=== PATIENT | male | born 1950 | race Caucasian/White ===

== ENCOUNTER 2017-06-16 09:00 | Day surgery (SDC) | payer MEDICARE, OTHER ==
[~2017-06-16 09:00] MED LIST: HYDROmorphone 2 MG/ML VIAL IV; IV RINGERS,LACTATED 1000ML 1,000 ML IV; LIDOCAINE 1% PF 2 ML VIAL. ID; MORPHINE SULFATE 2 MG/ML DISP.SYRIN. IV; ONDANSETRON PF 4 MG/2 ML VIAL. IV; PROCHLORPERAZINE 10 MG/2 ML VIAL. IV; fentaNYL PF VIAL 100 MCG/2 ML VIAL IV
[2017-06-16] MEDS ORDERED: PROPOFOL 20 ML IV ×2 (10:24)
== END 2017-06-16 11:40 | disposition home or self-care (01) ==
LOC: SURG 09:00
DX: I48.92 Unspecified atrial flutter (principal); E78.00 Pure hypercholesterolemia, unspecified; I48.91 Unspecified atrial fibrillation; K21.9 Gastro-esophageal reflux disease without esophagitis; F17.200 Nicotine dependence, unspecified, uncomplicated; Z98.41 Cataract extraction status, right eye; Z98.42 Cataract extraction status, left eye; Z87.39 Personal history of other diseases of the musculoskeletal system and connective tissue; Z72.89 Other problems related to lifestyle; Z88.0 Allergy status to penicillin
CPT/HCPCS: 92960; 93005; J2704

== ENCOUNTER → 2020-01-22 | Outpatient (CLI) | payer MEDICARE, OTHER ==
[2017-06-16 11:09] VITALS: BP 113/75
[~2020-01-22] MED LIST changes: +AMIO200T4 PO; +APIX5TAB PO; +DILT240C66 PO; -HYDROmorphone 2 MG/ML VIAL IV; -IV RINGERS,LACTATED 1000ML 1,000 ML IV; -LIDOCAINE 1% PF 2 ML VIAL. ID; -MORPHINE SULFATE 2 MG/ML DISP.SYRIN. IV; +MULT-445 PO; -ONDANSETRON PF 4 MG/2 ML VIAL. IV; +PANT20TA2 PO; -PROCHLORPERAZINE 10 MG/2 ML VIAL. IV; -fentaNYL PF VIAL 100 MCG/2 ML VIAL IV
--- NOTE | 2020-01-22 11:58 | CARD ---
MR#: [id number] Date of Study: 01/22/2020 Ordering Physician: ROSALINDA EVANS, Referring Physician: ROSALINDA EVANS Tech: Gali Resendiz RDCS APPROVED REPORT EXAM: Two-dimensional and M-mode echocardiogram with Doppler and color Doppler. Other Information Quality : Fair Technically limited study due to body habitus. INDICATION Atrial Flutter 2D DIMENSIONS Left Atrium(2D)3.9 (1.6-4.0cm)IVSd1.1 (0.7-1.1cm) Aortic Root(2D)2.8 (2.0-3.7cm)LVDd4.9 (3.9-5.9cm) LVOT Diameter2.0 (1.8-2.4cm)PWd1.1 (0.7-1.1cm) LVDs3.0 (2.5-4.0cm)FS (%) 38.2 % SV76.7 mlLVEF(%)60.0 (>50%) Aortic Valve AoV Peak Kavon.139.9cm/sAoV VTI33.0cm AO Peak GR.7.8mmHgLVOT Peak Kavon.132.5cm/s LVOT VTI 30.07cmAO Mean GR.4mmHg EASTON (VMAX)3.05px1ZGU (VTI)2.95cm2 Mitral Valve MV E Wujvbojy975.3cm/sMV DECEL EACD487cw MV A Ybmthjod62.8cm/sMV TSL84vc E/A Ratio1.5MVA (PHT)3.56cm2 TDI E/Lateral E'13.3E/Medial E'17.9 Tricuspid Valve TR P. Xmafqxpl007hs/sRAP [id number] TR Peak Gr.91chSoAMNE14wrXe Pulmonary Vein S1 Sopzpnqu07.0cm/sD2 Pydosbbg06.5cm/s LEFT VENTRICLE The left ventricle is normal size. There is normal left ventricular wall thickness. The Ejection Frac tion is 55-60%. The left ventricular systolic function is normal and the ejection fraction is within normal range. There is normal LV segmental wall motion. Transmitral Doppler flow pattern is Grade II- pseudonormal filling dynamics. RIGHT VENTRICLE The right ventricle is normal size. The right ventricular systolic function is normal. ATRIA The left atrium size is normal. The right atrium size is normal. The interatrial septum is intact wit h no evidence for an atrial septal defect or patent foramen ovale as noted on 2-D or Doppler imaging. AORTIC VALVE The aortic valve is not well visualized but appears to be functioning normally by Doppler interrogati on. Doppler and Color Flow revealed no significant aortic regurgitation. There is no significant aort ic valvular stenosis. MITRAL VALVE The mitral valve is calcified but opens well. Mitral annular calcification is mild. There is no evide nce of mitral valve prolapse. There is no mitral valve stenosis. Doppler and Color-flow revealed trac e mitral regurgitation. TRICUSPID VALVE The tricuspid valve is normal in structure and function. Doppler and Color Flow revealed trace to mil d tricuspid regurgitation. The PA pressure was estimated at 27 mmHg. There is no tricuspid valve sten osis. PULMONIC VALVE The pulmonic valve is not well visualized. Doppler and Color Flow revealed no pulmonic valvular regur gitation. There is no pulmonic valvular stenosis. GREAT VESSELS The aortic root is normal in size. The ascending aorta is not well seen. The IVC is normal in size an d collapses >50% with inspiration. PERICARDIAL EFFUSION There is no evidence of significant pericardial effusion. Critical Notification Critical Value: No <Conclusion> The Ejection Fraction is 55-60%. The left ventricular systolic function is normal and the ejection fr action is within normal range. There is normal LV segmental wall motion. Signed by : Carlitos Penn, Electronically Approved : 01/22/2020 11:57:47
== END | disposition home or self-care (01) ==
LOC: ECHO 08:39
PROVIDERS: ATTEND Internal Medicine Cardiovascular Disease
DX: I08.1 Rheumatic disorders of both mitral and tricuspid valves (principal); I48.92 Unspecified atrial flutter
CPT/HCPCS: 93306